=== PATIENT | male | born 1990 | race Caucasian/White ===

== ENCOUNTER 2023-11-15 19:54 | Emergency (ER) | payer OTHER, SELFPAY ==
[2023-11-15 20:04] VITALS: BP 147/74; PULSE 106; RESP 24; TEMP 36.9; O2SAT 99; BMI 21.7
--- NOTE | 2023-11-15 20:31 | ED_ITS ---
HPI - General Adult General Chief complaint: Neuro Symptoms/Deficit Stated complaint: CANNOT WALK, LEGS SEIZING Time Seen by Provider: 11/15/23 20:04 Source: patient Mode of arrival: Wheelchair Limitations: no limitations History of Present Illness HPI narrative: 33-year-old male presents to the emergency department s/p fall at [facility]. Patient reports history of substance abuse which has affected his ability to ambulate. States he walks with a cane. When he went to the facility, patient states he was made to walk a lot and he ended up tripping on a rug, falling. Facility called here and requested the patient be medically evaluated and cleared before they were taken back. Patient admits to last using crack before 1830 hrs. this past evening. Patient voices no complaints. States that this is chronic condition, problem and he has hopes of remedying this problem with admission to the treatment facility. Patient does not want any further treatment, testing performed in this emergency department tonight. Quality: As above Severity: Moderate Timing: As above, ongoing Context: Normal setting and activity Modifying factors: None Associated symptoms: As above Related Data Home Medications Medication Instructions Recorded Confirmed No Known Home Medications 11/15/23 11/15/23 Allergies Allergy/AdvReac Type Severity Reaction Status Date / Time morphine AdvReac Mild Swelling Verified 11/15/23 20:13 of Lip/Tongue/Throat Review of Systems ROS Narrative CONST: Denies fever, chills HENT: Denies congestion, sore throat EYES: Denies eye redness, visual disturbance RESP: Denies cough, shortness of breath CV: + peripheral edema. Denies chest pain, palpitations GI: Denies abd pain, nausea, vomiting : Denies dysuria, flank pain MS: Denies back pain, myalgias SKIN: + abrasions, color change to ankle where he shoots up Fentanyl. NEURO: + chronic numbness, weakness PSYCHIATRIC: Denies confusion, agitation PFSH PFSH Social History Smoking status: Current every day smoker Exam Narrative Exam Narrative: Vital signs reviewed Nurses notes noted CONST: Nontoxic, well appearing, well nourished, in no distress.? No diaphoresis.?? HENT: normocephalic, + abrasions to face. Moist mucous membrane, no abnormalities of the nose noted, hearing normal EYES: normal appearing conjunctiva, no apparent discharge bilat NECK: normal appearance CV: normal rate, regular rhythm, no murmur. + bilat LE edema RESP: normal effort, speaking in complete sentences. Lung sounds clear and equal bilat.? No wheezes, rales, rhonchi : no CVA tenderness MS: no edema, tenderness SKIN: no pallor. + multiple abrasions noted to face, BLE. + wound to ankle from Fentanyl injections NEURO: A&Ox 3, no focal findings PSYCH: normal mood, affect Constitutional Vital Signs, click to edit/add: Last Vital Signs Temp 98.5 F 11/15/23 20:04 Pulse 106 H 11/15/23 20:04 Resp 24 11/15/23 20:04 BP 147/74 H 11/15/23 20:04 Pulse Ox 99 11/15/23 20:04 O2 Del Method Room Air 11/15/23 20:04 Course Vital Signs Vital signs: Vital Signs Temperature 98.5 F 11/15/23 20:04 Pulse Rate 106 H 11/15/23 20:04 Respiratory Rate 24 11/15/23 20:04 Blood Pressure 147/74 H 11/15/23 20:04 Pulse Oximetry 99 11/15/23 20:04 Oxygen Delivery Method Room Air 11/15/23 20:04 Temperature 98.5 F 11/15/23 20:04 Pulse Rate 106 H 11/15/23 20:04 Respiratory Rate 24 11/15/23 20:04 Blood Pressure 147/74 H 11/15/23 20:04 Pulse Oximetry 99 11/15/23 20:04 Oxygen Delivery Method Room Air 11/15/23 20:04 Medical Decision Making MDM Narrative Medical decision making narrative: This is a pleasant 33-year-old male, history of polysubstance abuse, presents to the emergency department status post fall at substance abuse treatment facility. States he was getting checked into the facility, he has trouble ambulating, walks with a walker, had to walk a lot, ended up tripping over carpet. The facility sent patient here for medical evaluation, clearance before they would accept him. Patient voices no complaints. He states all of his problems are chronic which is why he is at the treatment facility. On arrival, afebrile, vital signs are stable. On exam, nontoxic patient in no apparent distress. He has a speech impediment, stuttering, which she states is chronic. He has abrasions to his face, edema a nd abrasions to his lower extremities, wound to his ankle from fentanyl injections. Heart regular rate and rhythm. Lung sounds clear and equal bilaterally. Patient is alert and oriented x 4. Patient refusing any further blood, urine testing. States she wants to be dispositioned, discharged. He will take a cab to get his truck [facility]. Informed patient that the facility wanted evaluation, medical clearance before they will take him back. He expresses understanding of this. He does not appear to be under the influence at this present time. He is of sound mind, normal judgment, capable of making decisions. Informed patient he may return anytime for workup he refused. Patient expresses understanding of this and voices no other questions or concerns. Disposition ? The patient was discharged. Plan: Patient will be discharged to home. Condition at time of disposition: stable ? Advised to follow up with his provider. Advised to return for any worsening and/or development of new, concerning signs or symptoms PLEASE NOTE: Portions of the medical record may have been produced using electronic weaving supervisor and may contain errors with respect to translation of words which may not have been identified prior to finalization of the chart. Discharge Plan Discharge Chief Complaint: Neuro Symptoms/Deficit Clinical Impression: Abrasion Fall Qualifiers: Encounter type: initial encounter Qualified Code(s): W19.XXXA - Unspecified fall, initial encounter Patient Disposition: Home, Self-Care Time of Disposition Decision: 20:32 Condition: Good Mode of Transportation: Private Vehicle Prescriptions / Home Meds: No Action No Known Home Medications Instructions: Abrasion (ED), Fall Prevention (ED) Stand Alone Forms: Portal Instructions Referrals: Physician,Non-Staff, [Primary Care Provider] - 1 week Discharge Date/Time: 11/15/23 21:10
== END 2023-11-15 21:10 | disposition home or self-care (01) ==
PROVIDERS: Emergency Provider Emergency Medicine
DX: S00.81XA Abrasion of other part of head, initial encounter (principal); S80.812A Abrasion, left lower leg, initial encounter; S80.811A Abrasion, right lower leg, initial encounter; W01.0XXA Fall on same level from slipping, tripping and stumbling without subsequent striking against object, initial encounter; F17.200 Nicotine dependence, unspecified, uncomplicated; F19.10 Other psychoactive substance abuse, uncomplicated; F80.81 Childhood onset fluency disorder
CPT/HCPCS: 99284

== ENCOUNTER 2023-11-16 18:32 | Emergency (ER) | payer OTHER, SELFPAY ==
[2023-11-16 18:45] VITALS: BP 110/68; PULSE 113; RESP 24; TEMP 36.9; O2SAT 98; BMI 21.7
[2023-11-16 18:52] VITALS: PULSE 113; RESP 28; O2SAT 98
--- NOTE | 2023-11-16 18:52 | ECG_ITS ---
[facility] Test Date: 2023-11-16 Pat Name: MARYAM DURBIN Department: Room: - Gender: Male Public Health Registrar: : 1990 Requested By: Order Number: [id number] Reading MD: ADARSH GARCIA Measurements Intervals [place] Rate: 106 P: 64 UT: 132 QRS: 65 QRSD: 114 T: 63 QT: 348 QTc: 410 Interpretive Statements 1120 Sinus tachycardia 2320 Nonspecific intraventricular conduction delay 9140 abnormal rhythm ECG No previous ECG available for comparison Electronically Signed On 11-17-2023 6:43:31 EST by ADARSH GARCIA
[2023-11-16 18:54] VITALS: BP 105/56; PULSE 108; RESP 19; O2SAT 98
[2023-11-16 19:00] VITALS: PULSE 121; RESP 28; O2SAT 100
--- NOTE | 2023-11-16 19:01 | US_ITS ---
[facility] [place] [id number] Patient Name: MARYAM DURBIN MRN: [id number] date: 1990 Sex: M Assigned Patient Location: ER Current Patient Location: ER Accession/Order Number: [id number] Exam Date: 11/16/2023 19:20 Report Date: 11/17/2023 16:23 At the request of: [employer] Procedure: US venous doppler LE BI EXAM: Right lower extremity Doppler ultrasound HISTORY: Leg pain. COMPARISON: None. TECHNIQUE: Ultrasonography of the right lower extremity is performed from the groin to the calf. FINDINGS: The deep venous structures demonstrate normal compressibility. There is no intraluminal thrombus. Normal color Doppler images with spectral waveforms. A lymph node is seen in the right inguinal region measuring approximately 5.1 x 0.8 cm. No drainable abscess. US/US venous doppler LE BI IMPRESSION: 1. No evidence for deep venous thrombosis. 2. Right inguinal lymph node. Electronically authenticated by: BENJIE FONTENOT Date: 11/17/2023 16:23
--- NOTE | 2023-11-16 19:02 | ED.MEDCLEAR1 ---
Documented by User: BRAVO Gudio 11/16/23 21:01 HPI - Medical Clearance General Chief complaint: Medical Clearance Stated complaint: Medical Clearance for [facility] Time Seen by Provider: 11/16/23 18:52 Source: patient Mode of arrival: walk-in Limitations: no limitations History of Present Illness HPI Narrative: Patient is a 33-year-old male with a history of chronic drug abuse who presents to the ER for medical clearance so that he can go to a drug treatment facility. He was sent to this emergency department last night for clearance, he declined treatment because he was very frustrated that he could not check into the drug treatment facility. He stayed in a hotel overnight and used multiple drugs this morning. He states he has a history of leg swelling when he injects drugs into his legs. He states his legs were much more swollen yesterday, And he is agreeable to medical evaluation today. He has not had any fevers or vomiting, he denies any focal medical complaints at this time. He states he is eager to be admitted to the drug treatment facility. There has been no drainage from his legs. Related Information Home Medications Medication Instructions Recorded Confirmed No Known Home Medications 11/15/23 11/15/23 Allergies Allergy/AdvReac Type Severity Reaction Status Date / Time morphine AdvReac Mild Swelling Verified 11/15/23 20:13 of Lip/Tongue/Throat Review of Systems ROS Constitutional Denies: fever or chills Ears, nose, mouth, and throat Denies: throat pain or nasal congestion Cardiovascular Denies: chest pain Respiratory Denies: shortness of breath Gastrointestinal Denies: nausea or vomiting Musculoskeletal Denies: back pain or neck pain Integumentary/Breast Denies: rash Neurological Denies: headache Hematologic/Lymphatic Denies: easy bruising or easy bleeding [facility] Social History Smoking status: Current every day smoker Exam Narrative Exam Narrative: Gen.: Awake, alert, in no distress Head: Normocephalic, atraumatic ENT: Moist mucous membranes Respiratory: No respiratory distress Extremities: Bilateral lower extremities with 2+ pitting edema to the ankles, scabbed areas noted with no surrounding cellulitis or open wounds. No red streaking. Calves are soft and nontender bilaterally. Psych: Normal mood and affect Neuro: No focal neuro deficit Skin: Warm, dry, intact; Patient with multiple scabbed areas over the hands, arms, legs. No open wounds or purulence noted. Abrasions noted to the forehead. Constitutional Vital Signs, click to edit/add: Last Vital Signs Temp 97.6 F 11/16/23 20:29 Pulse 93 H 11/16/23 20:29 Resp 16 11/16/23 20:29 BP 122/82 11/16/23 20:29 Pulse Ox 99 11/16/23 20:29 O2 Del Method Room Air 11/16/23 18:45 Course Vital Signs Vital signs: Vital Signs Temperature 98.5 F 11/16/23 18:45 Pulse Rate 113 H 11/16/23 18:45 Respiratory Rate 24 11/16/23 18:45 Blood Pressure 110/68 11/16/23 18:45 Pulse Oximetry 98 11/16/23 18:45 Oxygen Delivery Method Room Air 11/16/23 18:45 Temperature 97.6 F 11/16/23 20:29 Pulse Rate 93 H 11/16/23 20:29 Respiratory Rate 16 11/16/23 20:29 Blood Pressure 122/82 11/16/23 20:29 Pulse Oximetry 99 11/16/23 20:29 Oxygen Delivery Method Room Air 11/16/23 18:45 MDM - Medical Clearance MDM Narrative Medical decision making narrative: Vital signs within normal limits on reevaluation at discharge, ultrasound of the bilateral lower extremities is negative, no evidence of significant cellulitis on exam. Labs show increased inflammatory markers with no other acute process. Patient discharged, medically clear for drug treatment facility. Stable at discharge. At time of discharge, we contacted [facility] and the nurse practitioner Alli stated that the patient was not supposed to come to this emergency department for medical clearance, he was supposed to be seen by a neurologist because he has been having muscle cramping and falls related to his legs. We do not have a neurologist on staff that can clear the patient, he will need to be seen as an outpatient before he can return to [facility]. In the emergency department, patient was able to ambulate to the bathroom and ambulate in and out of his exam room with no difficulty or falls. He has no focal neuro weakness in the emergency department. Patient was extremely upset that he was not able to return to [facility] for treatment tonight. He has no other exam findings concerning for acute neurological emergency. Medical Records Attestation: I reviewed the patient's medical records. Lab Data Attestation: I reviewed the patient's lab results. Labs: Lab Results 11/16/23 Range/Units 19:31 WBC 6.9 (4.0-11.0) 10^3/uL RBC 3.55 L (4.70-6.10) 10^6/uL Hgb 9.8 L (14.0-18.0) g/dL Hct 30.3 L (42.0-54.0) % MCV 85.4 (80.0-94.0) fL MCH 27.6 (25.9-34.0) pg MCHC 32.3 (29.9-35.2) g/dL RDW 12.4 (11.0-15.0) % Plt Count 339 (150-450) 10^3/uL MPV 8.2 L (9.5-13.5) fL Neut % (Auto) 71.5 (43.0-75.0) % Lymph % (Auto) 16.7 L (20.5-60.0) % Armstrong % (Auto) 9.7 (1.7-12.0) % Eos % (Auto) 1.4 (0.9-7.0) % Baso % (Auto) 0.4 (0.2-2.0) % Neut # (Auto) 5.0 (1.4-6.5) 10^3/uL Lymph # (Auto) 1.2 (1.2-3.8) 10^3/uL Armstrong # (Auto) 0.7 (0.3-0.8) 10^3/uL Eos # (Auto) 0.1 (0.0-0.7) 10^3/uL Baso # (Auto) 0.0 (0.0-0.1) 10^3/uL Abs Immat Gran (auto) 0.02 (0.00-0.03) 10^3/uL Imm/Tot Granulo (auto) 0.3 (0.0-0.5) % ESR 57 H (<=15) mm/hr PT 10.3 (9.0-11.6) sec INR 0.97 Sodium 137 (136-145) mmol/L Potassium 4.0 (3.5-5.1) mmol/L Chloride 100 (98-107) mmol/L Carbon Dioxide 29.3 (21.0-32.0) mmol/L Anion Gap 11.7 BUN 14.0 (7.0-18.0) mg/dL Creatinine 0.79 (0.70-1.30) mg/dL Est GFR ( Amer) >60 (>=60) Est GFR (Non-Af Amer) >60 (>=60) BUN/Creatinine Ratio 17.7 Glucose 134 H (74-106) mg/dL Calcium 8.5 (8.5-10.1) mg/dL Total Bilirubin 0.3 (0.2-1.0) mg/dL AST 20 (15-37) U/L ALT 17 (16-63) U/L Alkaline Phosphatase 82 (46-116) U/L C-Reactive Protein 6.69 H (<=0.50) mg/dL NT-Pro-B Natriuret Pep 152.0 (<=450.0) pg/mL Total Protein 7.1 (6.4-8.2) g/dL Albumin 2.9 L (3.4-5.0) g/dL Globulin 4.2 g/dL Albumin/Globulin Ratio 0.7 Imaging Data Venous US: Attestation: I have reviewed the pertinent imaging results. Radiologist's impression: ITS Impressions Venous Doppler Study 11/16/23 19:01 IMPRESSION: 1. No evidence for deep venous thrombosis. 2. Right inguinal lymph node. Electronically authenticated by: BENJIE FONTENOT Date: 11/17/2023 07:47 Discharge Plan Discharge Chief Complaint: Medical Clearance Clinical Impression: Localized swelling of both lower legs Patient Disposition: Home, Self-Care Time of Disposition Decision: 20:31 Condition: Good Prescriptions / Home Meds: No Action No Known Home Medications Instructions: Leg Edema (ED) Stand Alone Forms: Portal Instructions Referrals: Physician,Non-Staff, MD [Primary Care Provider] - 1 week Discharge Date/Time: 11/16/23 21:26 Documented by User: Eric Dewitt MD 11/17/23 08:23 HPI - Medical Clearance General Chief complaint: Medical Clearance Stated complaint: Medical Clearance for [facility] Time Seen by Provider: 11/16/23 18:52 Related Information Home Medications Medication Instructions Recorded Confirmed No Known Home Medications 11/15/23 11/15/23 Allergies Allergy/AdvReac Type Severity Reaction Status Date / Time morphine AdvReac Mild Swelling Verified 11/15/23 20:13 of Lip/Tongue/Throat PFSH PFSH Social History Smoking status: Current every day smoker Exam Constitutional Vital Signs, click to edit/add: Last Vital Signs Temp 97.6 F 11/16/23 20:29 Pulse 93 H 11/16/23 20:29 Resp 16 11/16/23 20:29 BP 122/82 11/16/23 20:29 Pulse Ox 99 11/16/23 20:29 O2 Del Method Room Air 11/16/23 18:45 Course Vital Signs Vital signs: Vital Signs Temperature 98.5 F 11/16/23 18:45 Pulse Rate 113 H 11/16/23 18:45 Respiratory Rate 24 11/16/23 18:45 Blood Pressure 110/68 11/16/23 18:45 Pulse Oximetry 98 11/16/23 18:45 Oxygen Delivery Method Room Air 11/16/23 18:45 Temperature 97.6 F 11/16/23 20:29 Pulse Rate 93 H 11/16/23 20:29 Respiratory Rate 16 11/16/23 20:29 Blood Pressure 122/82 11/16/23 20:29 Pulse Oximetry 99 11/16/23 20:29 Oxygen Delivery Method Room Air 11/16/23 18:45 MDM - Medical Clearance MDM Narrative Medical decision making narrative: Vital signs within normal limits on reevaluation at discharge, ultrasound of the bilateral lower extremities is negative, no evidence of significant cellulitis on exam. Labs show increased inflammatory markers with no other acute process. Patient discharged, medically clear for drug treatment facility. Stable at discharge. At time of discharge, we contacted [facility] facility and the nurse practitioner Alli stated that the patient was not supposed to come to this emergency department for medical clearance, he was supposed to be seen by a neurologist because he has been having muscle cramping and falls related to his legs. We do not have a neurologist on staff that can clear the patient, he will need to be seen as an outpatient before he can return to [facility]. In the emergency department, patient was able to ambulate to the bathroom and ambulate in and out of his exam room with no difficulty or falls. He has no focal neuro weakness in the emergency department. Patient was extremely upset that he was not able to return to [facility] for treatment tonight. He has no other exam findings concerning for acute neurological emergency. This patient was seen and evaluated by Dr. Callaway, Dr. Dewitt did not see this patient. Lab Data Labs: Lab Results 11/16/23 Range/Units 19:31 WBC 6.9 (4.0-11.0) 10^3/uL RBC 3.55 L (4.70-6.10) 10^6/uL Hgb 9.8 L (14.0-18.0) g/dL Hct 30.3 L (42.0-54.0) % MCV 85.4 (80.0-94.0) fL MCH 27.6 (25.9-34.0) pg MCHC 32.3 (29.9-35.2) g/dL RDW 12.4 (11.0-15.0) % Plt Count 339 (150-450) 10^3/uL MPV 8.2 L (9.5-13.5) fL Neut % (Auto) 71.5 (43.0-75.0) % Lymph % (Auto) 16.7 L (20.5-60.0) % Armstrong % (Auto) 9.7 (1.7-12.0) % Eos % (Auto) 1.4 (0.9-7.0) % Baso % (Auto) 0.4 (0.2-2.0) % Neut # (Auto) 5.0 (1.4-6.5) 10^3/uL Lymph # (Auto) 1.2 (1.2-3.8) 10^3/uL Armstrong # (Auto) 0.7 (0.3-0.8) 10^3/uL Eos # (Auto) 0.1 (0.0-0.7) 10^3/uL Baso # (Auto) 0.0 (0.0-0.1) 10^3/uL Abs Immat Gran (auto) 0.02 (0.00-0.03) 10^3/uL Imm/Tot Granulo (auto) 0.3 (0.0-0.5) % ESR 57 H (<=15) mm/hr PT 10.3 (9.0-11.6) sec INR 0.97 Sodium 137 (136-145) mmol/L Potassium 4.0 (3.5-5.1) mmol/L Chloride 100 (98-107) mmol/L Carbon Dioxide 29.3 (21.0-32.0) mmol/L Anion Gap 11.7 BUN 14.0 (7.0-18.0) mg/dL Creatinine 0.79 (0.70-1.30) mg/dL Est GFR ( Amer) >60 (>=60) Est GFR (Non-Af Amer) >60 (>=60) BUN/Creatinine Ratio 17.7 Glucose 134 H (74-106) mg/dL Calcium 8.5 (8.5-10.1) mg/dL Total Bilirubin 0.3 (0.2-1.0) mg/dL AST 20 (15-37) U/L ALT 17 (16-63) U/L Alkaline Phosphatase 82 (46-116) U/L C-Reactive Protein 6.69 H (<=0.50) mg/dL NT-Pro-B Natriuret Pep 152.0 (<=450.0) pg/mL Total Protein 7.1 (6.4-8.2) g/dL Albumin 2.9 L (3.4-5.0) g/dL Globulin 4.2 g/dL Albumin/Globulin Ratio 0.7 Imaging Data Venous US: Radiologist's impression: ITS Impressions Venous Doppler Study 11/16/23 19:01
[2023-11-16 19:42] LABS: Basophils Percent Auto 0.4 % (0.2-2.0); Eosinophils Absolute Auto 0.1 10^3/uL (0.0-0.7); Eosinophils Percent Auto 1.4 % (0.9-7.0); Hematocrit 30.3 % (42.0-54.0); Hemoglobin 9.8 g/dL (14.0-18.0); Immature Granulocytes Abs Auto 0.02 10^3/uL (0.00-0.03); Immature Granulocytes Pct Auto 0.3 % (0.0-0.5); Lymphocytes Absolute Auto 1.2 10^3/uL (1.2-3.8); Lymphocytes Percent Auto 16.7 % (20.5-60.0); Mean Corpuscular HGB Conc 32.3 g/dL (29.9-35.2); Mean Corpuscular Hemoglobin 27.6 pg (25.9-34.0); Mean Corpuscular Volume 85.4 fL (80.0-94.0); Mean Platelet Volume 8.2 fL (9.5-13.5); Monocytes Absolute Auto 0.7 10^3/uL (0.3-0.8); Monocytes Percent Auto 9.7 % (1.7-12.0); Neutrophils Percent Auto 71.5 % (43.0-75.0); Platelet Count 339 10^3/uL (150-450); Red Blood Count 3.55 10^6/uL (4.70-6.10); Red Cell Distribution Width 12.4 % (11.0-15.0); White Blood Count 6.9 10^3/uL (4.0-11.0)
[2023-11-16 19:53] LABS: Erythrocyte Sedimentation Rate 57 mm/hr (<=15)
[2023-11-16 19:54] LABS: Alanine Aminotransferase 17 U/L (16-63); Albumin Globulin Ratio 0.7; Albumin Level 2.9 g/dL (3.4-5.0); Alkaline Phosphatase 82 U/L (46-116); Anion Gap 11.7; Aspartate Amino Transferase 20 U/L (15-37); BUN Creatinine Ratio 17.7; Bilirubin Total 0.3 mg/dL (0.2-1.0); Calcium 8.5 mg/dL (8.5-10.1); Carbon Dioxide 29.3 mmol/L (21.0-32.0); Chloride 100 mmol/L (98-107); Estimated GFR (African America >60 (>=60); Estimated GFR (Non-African Ame >60 (>=60); Globulin 4.2 g/dL; Glucose 134 mg/dL (74-106); Sodium 137 mmol/L (136-145); Total Protein 7.1 g/dL (6.4-8.2)
--- NOTE | 2023-11-16 19:56 | PC.NURSE ---
Report received from Sherita CORDON On assessment pt appears to be calm and cooperative yet anxious Pt is alert and oriented Pt wants to go back to [facility] to get clean but needs to be medically cleared first Pt states when he has money and time he cannot stop doing drugs Pt has severe and plentiful ulcerations to bilateral arms with swelling in bilateral legs Pt states his legs swell like this when he does drugs but go down the next day Pt able to safely ambulate to the restroom Pt used Coccaine, Crack, Xanax, Fentanyl today
[2023-11-16 20:00] LABS: C Reactive Protein 6.69 mg/dL (<=0.50); INR 0.97; Prothrombin Time 10.3 sec (9.0-11.6)
[2023-11-16 20:29] VITALS: BP 122/82; PULSE 93; RESP 16; TEMP 36.4; O2SAT 99
--- NOTE | 2023-11-16 21:07 | PC.NURSE ---
This nurse called and spoke to Alli SIGNAL TOWER DIRECTOR from [facility] about patient's discharge Alli stated the pt has been discharged from their facility until he follows up with neurology Alli stated the pt is to be discharged to his own care, when asked about what neurology the pt is to see, he replied the pt has his information of follow ups from [facility] where he was seen on October 27 Per Alli, pt was not directed to be seen in the ER This nurse took discharge paperwork into pt and informed him of what [facility] had told me Pt was verbally agitated and stated his irritability towards [facility] and the staff there Pt states that he believes they do not want him there Pt states he is going to if he doesn't get treatment he is going to continue taking drugs, more and more Pt yells and throws phone in room, calls family and tells them he is coming home Pt then apologizes to this nurse, states we have been great to him but this has been a waste of time and he needs help and can't get it This nurse offers to call other rehab facilities or set him up with a neuro follow up to which the pt states he does not want Pt did not take discharge paperwork, states he is going to [place] next week to get into rehab Pt was given a contact number for [facility] to which he was calling on his own - per Sherita CORDON, pt was medically cleared from us, what happens between [facility] and them is their discussion to have Pt denies further needs or questions from this nurse and our facility and ambulates to ER exit
== END 2023-11-16 21:26 | disposition home or self-care (01) ==
PROVIDERS: Physician Assistant; Emergency Provider Internal Medicine
DX: M79.89 Other specified soft tissue disorders (principal); F17.210 Nicotine dependence, cigarettes, uncomplicated; F19.90 Other psychoactive substance use, unspecified, uncomplicated
CPT/HCPCS: 36415; 80053; 83880; 85025; 85610; 85652; 86140; 93005; 93970; 99284